=== PATIENT | male | born 1940 | race Caucasian/White ===

== ENCOUNTER 2017-09-13 09:41 | Outpatient (CLI) | payer MEDICARE ==
[2017-09-13] MEDS ORDERED: Iopamidol 370 76% 100 ML VIAL ONE (12:01)
--- NOTE | 2017-09-13 13:44 | CT ---
CT CHEST WITH CONTRAST CT ABDOMEN AND PELVIS WITH CONTRAST: Technique: Multiple axial tomograms were obtained through the chest, abdomen, and pelvis with IV enha ncement. Multiplanar reconstruction. History: Pancreatic neoplasm. Post chemo radiation. Comparison: CT chest from [facility] dated 11-14-16. CT abdomen dated 10-30-16. FINDINGS: CT CHEST: The lung alvarado are clear. No evidence of effusion, infiltrate, or mass. Tiny 3 mm nodule in the post erior left lung base is stable. Mild stranding in the left lung base is stable. Review of the mediastinum shows mild prominence of the ascending aorta measured at 4 cm. This is stab le. The left lobe of the thyroid is absent. Right lobe is mildly heterogenous and stable in appearanc e. No evidence of axillary adenopathy. The thoracic spine show mild degenerative change but appear st able in appearance. IMPRESSION: No evidence of acute chest process or metastatic lesion. There are stable chest findings as described above. CT ABDOMEN AND PELVIS: Comparison is made from the CT abdomen and pelvis from [facility] dated 10-30-16. There has been resection of the head of the pancreas since the prior study. There is evidence of a ch oledochoduodenostomy. The body and tail of the pancreas appears unremarkable. No evidence of recurren t mass. There is no diffuse low attenuation of the liver consistent with secondary hepatic steatosis. There i s heterogeneous opacity in the left lobe of the liver which is suggestive of areas of fatty sparring. There is no evidence of biliary duct dilatation. The spleen is unremarkable. Adrenal glands and kidneys unremarkable. Small bowel loops appear normal. Colon is unremarkable. Ther e is diverticulosis of the sigmoid colon. Prostate upper normal size. Urinary bladder unremarkable. Aorta is normal caliber with atherosclerotic changes seen. No adenopathy identified. Osseous structures are unremarkable with degenerative spine changes and degenerative hip changes. IMPRESSION: 1. Post-operative changes of partial pancreatectomy and choledochoduodenostomy. 2. Diffuse hepatic steatosis now present. There are areas of fatty sparring in the left lobe of the l iver. 3. No acute intraabdominal process or adenopathy identified. POS: [facility]
== END 2017-09-13 09:42 | disposition home or self-care (01) ==
LOC: CT 09:41
PROVIDERS: ATTEND Internal Medicine Hematology & Oncology
DX: C25.0 Malignant neoplasm of head of pancreas (principal); D75.1 Secondary polycythemia
CPT/HCPCS: 71260; 74177

== ENCOUNTER 2017-12-01 09:12 | Outpatient (CLI) | payer MEDICARE ==
--- NOTE | 2017-12-01 11:04 | CT ---
CT CHEST WITH IV CONTRAST CT ABDOMEN AND PELVIS WITH IV CONTRAST: Date: 12-01-17 History: Pancreatic cancer. Patient has had history of chemotherapy and radiation. This is a follow u p evaluation. Patient also has post-surgical history of Whipple procedure. Comparison: 09-13-17 FINDINGS: CT THORAX: A right internal jugular vein Mediport catheter remains in place. There is persistent ectasia of the ascending thoracic aorta measuring 4.4 cm in diameter. Vascular ca lcifications are seen in the coronary arteries as well as involving the thoracic aorta. There is no axillary, hilar, or mediastinal lymphadenopathy seen. Left lobe of the thyroid gland is either very small in size or absent. There is dependent atelectasis posteriorly, but there is no discrete pulmonary nodule, mass or pleura l effusion. Degenerative changes are again seen in the spine. CT ABDOMEN AND PELVIS: Post-surgical changes of the abdomen related to patient's history of Whipple procedure are again pres ent. Again noted is diffuse fatty infiltration of the liver with stable but mildly improved heterogeneity in the region of the medial aspect of the right and left hepatic lobes. These areas of slightly great er increased density and heterogeneity may be related to areas of fatty sparring. The loop of ileum adjacent to the liver demonstrates mild wall thickening, but this is unchanged from the prior exam. Minimal pneumobilia is present. The remaining body and tail of the pancreas are stable in size and although mildly atrophied, appear grossly normal in appearance. The spleen, bilateral adrenal glands, kidneys, and urinary bladder demonstrate a normal CT appearance . There is colonic diverticulosis. Suggested mild wall thickening involving a portion of the transverse colon. This was similar to the prior exam and could potentially be related to incomplete distention. The loops of small bowel are normal in caliber. There are several loops of bowel closely adjacent to the anterior abdominal wall and there is suggesting of a small umbilical hernia loop of bowel extend ing into this region. There is no bowel obstruction present. Vascular calcifications and atherosclerotic plaque are seen in the abdominal aorta and iliac arteries . No enlarged lymph nodes are seen by CT size criteria. There is no free fluid or fluid collection seen in the abdomen or pelvis. Multilevel degenerative changes are seen in the lumbar spine. No lytic or sclerotic osseous lesions a re present. There are subchondral cystic changes involving the right femoral head/neck junction. IMPRESSION: 1. Post-operative changes related to patient's history of prior Whipple procedure. 2. Diffuse fatty infiltration of the liver with probable fatty sparring adjacent to the medial aspect s of the right and left hepatic lobes. There is minimal pneumobilia. 3. Ectasia of the ascending thoracic aorta. 4. No CT evidence of metastatic disease involving the chest, abdomen, or pelvis. 5. Colonic diverticulosis. There is suggested wall thickening involving the hepatic flexure and porti on of the transverse colon, similar to the prior exam. However, the colon throughout this region is i ncompletely distended which may account for this finding. While colitis cannot be entirely excluded, this is a stable finding. 6. Stable thickening involving a loop of ileum in the region of the alayna hepatis. POS: [facility]
== END 2017-12-01 09:13 | disposition home or self-care (01) ==
LOC: CT 09:12
PROVIDERS: ATTEND Internal Medicine Hematology & Oncology
DX: C25.0 Malignant neoplasm of head of pancreas (principal); K76.0 Fatty (change of) liver, not elsewhere classified; I77.810 Thoracic aortic ectasia; K57.30 Diverticulosis of large intestine without perforation or abscess without bleeding; Z98.890 Other specified postprocedural states
CPT/HCPCS: 71260; 74177

== ENCOUNTER 2018-01-02 13:49 | Outpatient (CLI) | payer MEDICARE ==
--- NOTE | 2018-01-02 17:04 | PET ---
PET CT: 01/02/18 HISTORY: 77-year-old male with pancreatic cancer. Last chemotherapy on 08/16/17. Exam is requested for restagi ng. Patient is also status post radiation therapy to the abdomen. Exam was requested to evaluate for rising CA19.9. TECHNIQUE: PET scan with CT attenuation correction was performed from the base of the brain to the proximal thig hs following the intravenous administration of 12.4 millicuries [id number] in the left an tecubital fossa. COMPARISON: None. CORRELATION: CT chest, abdomen and pelvis dated 12/01/17. FINDINGS: There is a focal area of abnormally intense FDG localization in the medial aspect of the right lobe o f the liver close to the hilum with an SUV of 6. No corresponding lesion is seen on the CT scan. No n odal hypermetabolism is seen in the neck, chest, axillae, abdomen or pelvis. No hypermetabolic pulmon paola nodules, adrenal or skeletal lesions are seen. There is physiologic activity in the GI and tracts and the visualized portions of the brain. The CT scan used for attenuation correction demonstrates no evidence for pleural effusions or ascites . IMPRESSION: Solitary liver metastasis. POS: [facility]
== END 2018-01-02 13:50 | disposition home or self-care (01) ==
LOC: PET 13:49
PROVIDERS: ATTEND Internal Medicine Hematology & Oncology
DX: C25.9 Malignant neoplasm of pancreas, unspecified (principal); C22.7 Other specified carcinomas of liver
CPT/HCPCS: 78815; A9552

== ENCOUNTER 2018-01-25 09:49 | Outpatient (CLI) | payer MEDICARE ==
--- NOTE | 2018-01-25 13:01 | ULT ---
ABDOMINAL SONOGRAM: HISTORY: Pancreatic cancer with liver mets. FINDINGS: The gallbladder is surgically absent. The common duct is 0.5 cm. The liver is heterogeneous and hyp erechoic. Centrally within the anterior segment right liver lobe, a lobular hypoechoic mass is 3.0 x 2.8 cm greatest diameter and is in the region of hypermetabolic activity on recent PET scan. No free fluid. The spleen, kidneys, and visualized portions of the abdominal aorta, IVC, and pancrea s have a normal appearance. IMPRESSION: 1. Right liver lobe mass, 3.0 cm, correlating with hypermetabolic mass seen on recent PET scan. The mass is not visible on CT imaging. 2. Hepatosteatosis. 3. Status post cholecystectomy. Findings were called to Dr. Corral at 1130 hours. CODE CR POS: [facility]
== END 2018-01-25 09:50 | disposition home or self-care (01) ==
LOC: ULT 09:49
PROVIDERS: ATTEND Internal Medicine Hematology & Oncology
DX: C25.0 Malignant neoplasm of head of pancreas (principal); D75.1 Secondary polycythemia; K83.8 Other specified diseases of biliary tract; R16.0 Hepatomegaly, not elsewhere classified; K76.0 Fatty (change of) liver, not elsewhere classified; Z90.49 Acquired absence of other specified parts of digestive tract
CPT/HCPCS: 76700

== ENCOUNTER 2018-02-06 12:38 | Inpatient (IN) | payer MEDICARE ==
[2018-02-06] MEDS ORDERED: traMADol HCl 50 MG TAB PO PRN (12:57)
[2018-02-06] MEDS ORDERED: Ondansetron ODT 8 MG TAB PO PRN (12:57)
[2018-02-06 14:07] VITALS: BMI 24.0
[2018-02-06] MEDS: D5 0.9% NS w/ 20 mEq KCl 1,000 ML IV SCH ×2 (14:18→23:39)
[2018-02-06] MEDS ORDERED: HYDROcodone/Acetaminophen 10/325 mg Tablet PO PRN (15:17)
[2018-02-06] MEDS ORDERED: Acetaminophen 325 MG TAB PO PRN (15:17)
[2018-02-06] MEDS ORDERED: hydrALAZINE 20 MG/ML VIAL SLOW IVP PRN (15:17)
[2018-02-06] MEDS ORDERED: diphenhydrAMINE 25 MG CAP PO PRN (15:17)
[2018-02-06] MEDS ORDERED: Milk Of Magnesia 30 ML UDCUP PO PRN (15:17)
[2018-02-06] MEDS ORDERED: Multivit, Adult Inj 10 ML VIAL IV SCH (15:22)
[2018-02-06] MEDS: Ondansetron ODT 4 MG TAB PO PRN (16:24)
[2018-02-06] MEDS: Aluminum & Magnesium Hydroxide 60 ML, Lidocaine 2% Viscous Solution 30 ML, diphenhydrAM... SSW PRN ×2 (18:34→22:00)
--- NOTE | 2018-02-06 20:36 | CT ---
CT BRAIN WITHOUT CONTRAST: 02/06/18 HISTORY: Fall. Low platelets. COMPARISON: None. FINDINGS: There is a moderate sized right convexity subdural hematoma. There is minimal mass effect. The hemato ma measures up to 1 cm. There is evidence of recent and hyperacute blood. Calvarium is intact. IMPRESSION: Acute right subdural hematoma measuring up to 1 cm in size without significant right to left midline shift. Code IVIS Serrano, nurse, notified of findings at 8:18 p.m. POS: [facility]
[2018-02-06 20:53] LABS: Platelet Count 29 thou/uL (130-400); White Blood Cell (WBC) Count 0.4 thou/uL (4.8-10.8)
[2018-02-06] MEDS: Polyethylene Glycol 3350 17 GM Packet PO SCH (21:00)
[2018-02-06 21:03] LABS: Hemoglobin 9.6 g/dL (14.0-18.0); Mean Corpuscular HGB CONC 33.7 g/dL (32.0-36.0); Mean Corpuscular Hemoglobin 31.7 pg (27.0-31.0); Mean Corpuscular Volume 94.3 fl (80.0-94.0); Mean Platelet Volume 11.2 fL (7.4-10.4); PLT Morphology Comment Appears Decreased; RBC Distribution Width 13.8 % (11.5-14.5); Red Blood Cell (RBC) Count 3.03 mill/uL (4.70-6.10)
--- NOTE | 2018-02-06 21:12 | PDOC.EVN ---
Event Note - Event Note Event Note: Patient had an unwitnessed fall in the room. Admitted for platelet transfusion with 7000 due to chemo for pancreatic cancer, neutropenic as well. No symptoms after fall, but ordered a CT. Came back with subdural hematoma 1cm. Examined patient and neurologically intact. Spoke with Macarena with Neurosurg. She just went and saw. Recommended ICU for q1 hour neuro monitor. Transfuse up to 50,[address] in AM.
[2018-02-06] MEDS: Famotidine/PF 20 mg/2ml Vial SLOW IVP SCH (21:57)
[2018-02-06] MEDS: Docusate 100 MG CAP PO SCH (22:01)
[2018-02-06] MEDS: Multivitamins, Adult 10 ML in Sodium Chloride 0.9% 500 ML IV SCH (22:02)
--- NOTE | 2018-02-06 22:03 | HP ---
PRIMARY CARE PHYSICIAN: Ronan Jain M.D. ONCOLOGIST: Dr. Andre Corral. REASON FOR ADMISSION: Feeling generally weak and low blood counts. HISTORY OF PRESENT ILLNESS: Mr. Power is a pleasant 77-year-old gentleman who has a history of met astatic pancreatic cancer. He also has a history of hypertension and a previous cerebrovascular acci dent. He was doing fairly well until recently. The patient has had a Whipple procedure over a year ago and has undergone 6 months of chemotherapy and then he was found to have a recurrence of the [facility] er in the liver with a single metastatic lesion. He was seen by his oncologist who recommended him t o see a liver specialist, Dr. Dowling who did not feel that the lesion was resectable and recommend th at he undergo chemotherapy. He has been undergoing Bexxar and Gemzar and since then he has been feel ing weak in the last 4 days. He says that he has been having some low-grade nausea. He has always h ad some lower abdominal pain off and on, which he rates at about a 3/5. However, his appetite is dec reased. He has only been eating pudding and jello and occasionally eat a half of a grilled cheese [facility]. He went in to see his oncologist today and was found to be pancytopenic and due to his gener alized weakness along with the pancytopenia, he is being admitted to the oncology [place] for transfusio n as well as IV fluid resuscitation. He has admitted to some fever off and on in the last 4 days, bu t none yesterday. He does have a sore throat, but no other symptoms. REVIEW OF SYSTEMS: Constitutional: He has had some fever off and on in the last few days. No chill s, no night sweats. He has had a poor appetite. HEENT: He denies any headache, no dizziness, no vi sual changes. He has had sore throat. No rhinorrhea, no neck pain, no adenopathy. No sinus drainag e or rhinorrhea. Pulmonary: No hemoptysis, no cough, no wheezing. Cardiovascular: He denies any c hest pain, no shortness of breath, no PND, no orthopnea. Gastrointestinal: He has had lower abdomin al pain off and on, which he rates at a 3/5, some low-grade nausea, but no vomiting, no hematemesis, no melena. Genitourinary: No urinary frequency, hematuria, no hesitancy. Neurologic: No focal wea kness, numbness, no seizures. Psychiatric: No symptoms of anxiety or depression. Skin and Integume nt: He denies any bruising, but has had some gum bleeding with brushing his teeth. No epistaxis. PAST MEDICAL HISTORY: Significant for adenocarcinoma of the pancreas; hypertension; diverticulitis; polycythemia, which was secondary; and cerebrovascular accident. PAST SURGICAL HISTORY: He had a Whipple procedure in 2017, cholecystectomy, cervical disk arthroplas ty, appendectomy, tonsillectomy, and sinus endoscopy. ALLERGIES: SULFA and PENICILLIN. SOCIAL HISTORY: He is . He is a nonsmoker, nondrinker. He wishes to be a DNR and this is pe r the patient. FAMILY HISTORY: Significant for ovarian cancer in his mother, lung cancer in a sister. Father had h eart failure. MEDICATIONS: He says he is on a blood pressure medicine and aspirin. PHYSICAL EXAMINATION: GENERAL: He is alert and oriented. He appears to be in no acute distress. HEENT: Pupils are equal, round, and reactive. Extraocular muscles are intact. His sclerae are anic teric. Throat: No erythema, no exudates. NECK: No adenopathy, no bruits. LUNGS: Clear to auscultation. There is no wheezing, no rales. CARDIOVASCULAR: He has a normal S1, S2. I did not appreciate an S3 or S4. No murmurs, clicks or ru bs. ABDOMEN: Soft, nontender, nondistended. Positive for bowel sounds. There is no organomegaly. EXTREMITIES: There is no clubbing, cyanosis, no edema. NEUROLOGIC: Neurologically, the exam is grossly nonfocal. LABORATORY DATA: He is a direct admission, so there are no recent labs in the system; however, from the oncology clinic, the white blood cell count was 0.7, hemoglobin 8.9 and platelet count was 9000. ASSESSMENT AND PLAN: 1. This is a pleasant 77-year-old gentleman who has pancytopenia likely as a result of chemotherapy. He will be admitted to the oncology floor. The plan is for the transfusion of one donor of single donor platelets. His hemoglobin is 8.9 and therefore currently does not require any transfusion of h emoglobin. He reports he has had some fever off and on. We will monitor him carefully for this. Sh ould he develop a fever, then he will need to be cultured and started empirically on antibiotics give n his degree of neutropenia. He will be placed on neutropenic precautions. Deep venous thrombosis p rophylaxis will be avoided due to the low platelet count, sequential compression devices as well give n the low platelet count, we do not want to cause any bruising. He will be placed on a proton pump i nhibitor for gastrointestinal prophylaxis and his oncologist will be consulted. 2. For hypertension, we will restart his usual antihypertensive medications as well as p.r.n. medica tions as needed. Further recommendations will depend on how he does overnight.
[2018-02-07 05:06] VITALS: BP 170/88
[2018-02-07] MEDS: Ondansetron ODT 4 MG TAB PO PRN (05:30)
[2018-02-07 05:34] LABS: Hemoglobin 8.4 g/dL (14.0-18.0); Mean Corpuscular HGB CONC 33.5 g/dL (32.0-36.0); Mean Corpuscular Hemoglobin 31.1 pg (27.0-31.0); Mean Platelet Volume 8.7 fL (7.4-10.4); Platelet Count 45 thou/uL (130-400); RBC Distribution Width 13.7 % (11.5-14.5); Red Blood Cell (RBC) Count 2.71 mill/uL (4.70-6.10); White Blood Cell (WBC) Count 0.3 thou/uL (4.8-10.8)
[2018-02-07 05:39] LABS: Anion Gap 15 mmol/L (10-20); BUN (Urea Nitrogen) 26 mg/dL (8.4-25.7); Calc. Creatinine Clearance 102 mL/min (70-130); Calcium 7.5 mg/dL (7.8-10.44); Carbon Dioxide 21 mmol/L (23-31); Chloride 107 mmol/L (98-107); Estimated GFR-MDRD Greater than 90; Glucose 143 mg/dL (83-110); Potassium 3.5 mmol/L (3.5-5.1); Sodium 139 mmol/L (136-145)
--- NOTE | 2018-02-07 08:07 | PRG ---
DATE OF SERVICE: 02/07/2018 The patient was seen and examined. I agree with Macarena Caicedo's note of 02/06/2018. HISTORY OF PRESENT ILLNESS: The patient is a 77-year-old man with metastatic pancreatic cancer, curr ently undergoing treatment. He was admitted for pancytopenia, in particular thrombocytopenia. He valdes d a fall while in house. He is currently neurologically intact, although he complains of headache an d is slightly sleepy. He is interactive and moves all 4 without focal deficit. A CT scan obtained after his fall shows a small acute right subdural hematoma. This is stable on his follow up CT scan this morning. IMPRESSION AND PLAN: The patient has a small acute subdural hematoma related to his thrombocytopenia with a recent fall. No plans for any neurosurgical intervention and he is stable clinically and rad iographically. I will arrange a 4-week follow up CT scan and agree with the recommendation to strive for a platelet count of 50,000 or greater, if possible. Please call with any neurologic changes.
--- NOTE | 2018-02-07 08:52 | CON ---
DATE OF CONSULTATION: 02/06/2018 ATTENDING PHYSICIAN: Dr. Ruperto Delong. HISTORY OF PRESENT ILLNESS: This is a 77-year-old male with a past medical history of panc reatic cancer, status post Whipple procedure in September, who was undergoing chemo with Dr. Jace ortega, who was recently found to have a low platelet count of 7000 and followup and direct admitted f or platelet transfusion. During his admission, the patient got up to go to the bathroom and suffered a mechanical fall, hitting his head. CT of the head was done, which was notable for an acute right subdural hematoma, approximately 1 cm without significant midline shift. He was recently transfused 1 unit of platelets and his repeat platelet count is 29,000. I am seeing the patient at the bedside. He is awake, alert, in no acute distress. He has normal cranial nerve exam. No focal neurologic d eficits are appreciated. PAST MEDICAL HISTORY: Hypertension, pancreatic cancer. PAST SURGICAL HISTORY: Tonsillectomy, cholecystectomy, appendectomy, Whipple procedure. SOCIAL HISTORY: The patient does not smoke, drink or use any drugs. FAMILY HISTORY: Noncontributory. ALLERGIES: The patient is allergic to PENICILLIN and SULFA. PHYSICAL EXAMINATION: VITAL SIGNS: Heart rate is 112, respirations are 20, he is 95% on room air, blood pressure is 181/82 . CONSTITUTIONAL: Awake, alert, no acute distress. GCS is 15. HEAD: Normocephalic, atraumatic. EYES: PERRLA. Extraocular movements intact. ENT: Oral mucosa is pink, intact and moist. The patient has normal voice. NECK: Nontender to palpation. Free active range of motion. No meningismus or nuchal rigidity. CARDIOVASCULAR: Regular rate and rhythm. LUNGS: The patient is breathing comfortably with symmetric chest expansion. MUSCULOSKELETAL: Free active range of motion of all extremities. No obvious deformities. NEUROLOGIC: He is alert and oriented x4. Normal cranial nerve exam. No focal neurologic deficits a re appreciated. ASSESSMENT AND PLAN: The patient has acute right subdural hematoma following mechanical fall. His s ituation is complicated by thrombocytopenia. He was admitted with a platelet count of 7000, but repe at is 29,000 after transfusion of 1 unit of platelets. I have recommended transfused to platelet cou nt 50,000. The patient will be moved to the ICU for q.1 neuro checks and close monitoring. His syst olic blood pressure goal should be less than 140. I have discussed this plan with Dr. Delong, who is in agreement. We will get a.m. head CT for repeat evaluation.
--- NOTE | 2018-02-07 09:02 | CON ---
DATE OF CONSULTATION: 02/07/2018 This is a 77-year-old gentleman who is in the ICU status post fall, status post an acute right-sided subdural hematoma. The patient apparently was here for transfusion of platelets overnight in the hospital when he appare ntly fell and sustained an acute right subdural hematoma. He was transferred to the ICU for ongoing observation. His history is extensively outlined in his medical records. From the Cancer Clinic here locally, the patient has an adenocarcinoma of the head of the pancreas, he is status post Whipple procedure 11/17 associated with some positive lymph nodes and extracapsular invasion. He has been receiving chemotherapy by his oncologist and was pancytopenic and arrived for a blood tra nsfusion. To note, his white count was 0.4, H&H was 9 and 28. His platelet count was 29,000. It is 45,000 this morning. His kidney functions are normal. Glucose is slightly elevated at 143 and his AST is 188. He had a CT done of his brain, which showed the above-mentioned acute right subdural. He was seen in consultation by Neurosurgery who is at this time planning conservative treatment. PAST MEDICAL HISTORY: Hypertension, previous CVA, previous polycythemia. PAST SURGICAL HISTORY: 1. Whipple 2017 2. Cholecystectomy. 3. Circ. 4. Appendix. 5. Tonsils. 6. Sinus surgery. ALLERGIES: SULFA, PENICILLIN. MEDICATIONS FROM HOME: MiraLax, Zofran, metoprolol 50 once a day, aspirin, tramadol p.r.n. SOCIAL HISTORY: No tobacco abuse, alcohol socially. REVIEW OF SYSTEMS: Otherwise 10-point negative. PHYSICAL EXAMINATION: VITAL SIGNS: Pulse is 96, blood pressure 129/91, sats 90%, respirations 18. CHEST: Chest reveals no wheezing or crackles. CARDIAC: Normal S1, S2, no gallops. ABDOMEN: Soft. No masses. IMPRESSION: 1. Right subdural acute, small. 2. Pancytopenia. White count is 0.3, H&H is 8.4 and 25, platelet count 45 this morning. Electrolytes are normal. IMPRESSION: 1. Adenocarcinoma. 2. Hypertension. PLAN: Pulmonary will follow while in the ICU. At this stage, nothing additional to offer. Supportive care. This is a consultation note, 70 minutes, 50% spent in direct patient care.
[2018-02-07] MEDS: Docusate 100 MG CAP PO SCH ×2 (09:11→20:06)
[2018-02-07] MEDS: D5 0.9% NS w/ 20 mEq KCl 1,000 ML IV SCH ×2 (09:29→20:26)
[2018-02-07] MEDS: Famotidine/PF 20 mg/2ml Vial SLOW IVP SCH ×2 (09:39→20:55)
--- NOTE | 2018-02-07 10:32 | CT ---
PRELIMINARY REPORT/[facility]/EMERGENTY AFTER-HOURS PROCEDURE Addendum created by Andrea Kessler MD on 02/07/2018 4:56 AM Central Time ([place] & [place]) THIS REPORT C ONTAINS FINDINGS THAT MAY BE CRITICAL TO PATIENT CARE. The findings were verbally communicated via te lephone conference with Brown Caicedo at 4:55 AM CDT on 02/07/2018. The findings were acknowledged and understood. Initial Report created on 02/07/2018 4:51 AM Central Time ([place] & [place]) CT Head Without Intravenous Contrast CLINICAL HISTORY: 77 years old, male; cerebral aneurysm: Pt fell, low platelet count. F/u bleed TECHNIQUE: Axial computed tomography images of the head/brain without intravenous contrast. COMPARISON: No relevant prior studies available. FINDINGS: Brain: Gxmmh-la-lrlctty right fjypcmah-rjvtosjj-jlfeppbir subdural hematoma measuring 9 mm in greates t transverse thickness. No midline shift. Periventricular white matter areas of decreased density whi ch are likely secondary to chronic ischemia from microvascular change. Diffuse cerebral atrophy. Ventricles: Ventricular prominence in this patient with diffuse cerebral atrophy. Bones/joints: Unremarkable. No acute fracture. Soft tissues: Unremarkable. Sinuses: No significant disease of the paranasal sinuses. Mastoid air cells: No mastoiditis. IMPRESSION: 1. Vsabi-gg-rkygfod right vhpoxctj-cqscjbax-dnpqbxsum subdural hematoma measuring 9 mm in greatest tr ansverse thickness. No midline shift. 2. Age-related periventricular white matter changes. Diffuse cerebral atrophy. Thank you for allowing us to participate in the care of your patient. Dictated and Authenticated by: Andrea Kessler MD 02/07/2018 4:51 AM Central Time ([place] & [place]) FINAL REPORT CT [place] WITHOUT CONTRAST: I agree with the preliminary report given by Dr. Andrea Kessler of [facility]. No significant interval change is seen since the previous exam of 02/06/18 (8:05 p.m.). POS: [facility]
[2018-02-07] MEDS ORDERED: Morphine 4 MG/ML VIAL ONE (16:12)
[2018-02-07] MEDS: Multivitamins, Adult 10 ML in Sodium Chloride 0.9% 500 ML IV SCH (16:57)
--- NOTE | 2018-02-07 18:28 | PDOC.PN ---
- Subjective Encounter Start Date: 02/07/18 Encounter Start Time: 09:40 Pt seen for followup re: pancytopenia. Denies chest pain, shortness of breath, fevers or chills. No nausea or vomiting. - Objective Resuscitation Status: Resuscitation Status DNI:No Intubation MAR Reviewed: Yes Vital Signs & Weight: Vital Signs (12 hours) Temp Pulse Resp Pulse Ox 02/07/18 18:00 98.0 F 02/07/18 14:00 98.0 F 02/07/18 10:00 98.2 F 02/07/18 08:00 98.0 F 90 18 98 02/07/18 07:00 98.0 F Weight Admit Weight 172 lb Weight 172 lb Most Recent Monitor Data Heart Rate from ECG 108 NIBP 120/43 NIBP BP-Mean 81 Respiration from ECG 31 SpO2 96 I&O: 02/06/18 02/07/18 02/08/18 06:59 06:59 06:59 Intake Total 1211 1470 Output Total 750 1 Balance 461 1469 Result Diagrams: 02/07/18 05:18 02/07/18 05:18 EKG Reviewed by me: Yes (Tele: NSR) Phys Exam - Physical Examination Constitutional: NAD HEENT: moist MMs, sclera anicteric, oral pharynx no lesions, 2+ tonsils Conjunctival pallor Neck: no nodes, no JVD, supple, full ROM Respiratory: no wheezing, no rales, no rhonchi, clear to auscultation bilateral Cardiovascular: RRR, no rub S1, S2 Gastrointestinal: soft, non-tender, no distention, positive bowel sounds Neurological: non-focal, moves all 4 limbs Psychiatric: normal affect, A&O x 3 Dx/Plan (1) Pancytopenia Code(s): D61.818 - OTHER PANCYTOPENIA Status: Acute Comment: Due to chemo. Keep platelets > 50 K. Transfuse 1 unit platelets today. Continue neutropenic precautions. (2) Intracranial bleed Code(s): I62.9 - NONTRAUMATIC INTRACRANIAL HEMORRHAGE, UNSPECIFIED Status: Acute Comment: Subdural hematoma. Seen by neurosurgery, no plan for surgery. Keep plts > 50k. (3) HTN (hypertension) Code(s): I10 - ESSENTIAL (PRIMARY) HYPERTENSION Status: Chronic Comment: Controlled (4) Pancreatic adenocarcinoma Code(s): C25.9 - MALIGNANT NEOPLASM OF PANCREAS, UNSPECIFIED Status: Chronic Comment: receiving chemotherapy, will consult oncology - Plan * . Review of Systems - Review of Systems Constitutional: negative: fever, chills, sweats, weakness, malaise Respiratory: negative: Cough, Shortness of Breath, SOB with Excertion, Pleuritic Pain, Wheezing Cardiovascular: negative: chest pain, palpitations, orthopnea, paroxysmal nocturnal dyspnea, edema, light headedness Gastrointestinal: negative: Nausea, Vomiting, Abdominal Pain, Diarrhea, Constipation, Melena, Hematochezia Genitourinary: negative: Dysuria, Frequency, Incontinence, Hematuria, Retention Neurological: negative: Weakness, Numbness, Incoordination, Change in Speech, Confusion, Seizures - Medications/Allergies Allergies/Adverse Reactions: Allergies Allergy/AdvReac Type Severity Reaction Status Date / Time Penicillins Allergy Intermediate Rash Verified 12/23/16 13:41 Sulfa (Sulfonamide Allergy Intermediate Rash Verified 12/23/16 13:41 Antibiotics) Medications: Current Medications Acetaminophen (Tylenol) 650 mg PO Q4H PRN PRN Reason: Headache/Fever or Pain Hydrocodone Bitart/Acetaminophen ([place] 10/325) 1 tab PO Q4H PRN PRN Reason: Moderate Pain (4-6) Al Hydroxide/Mg Hydroxide 60 ml/ Lidocaine HCl 30 ml/Diphenhydramine HCl 75 mg 0 ml SSW PRN PRN PRN Reason: Mouth Irritation Last Admin: 02/06/18 18:34 Dose: 10 ml Diphenhydramine HCl (Benadryl) 25 mg PO Q4H PRN PRN Reason: Itching Docusate Sodium (Colace) 100 mg PO BID [facility] Last Admin: 02/07/18 09:11 Dose: Not Given Famotidine (Pepcid) 20 mg SLOW IVP Q12HR [facility] Last Admin: 02/07/18 09:39 Dose: Not Given Hydralazine HCl (Apresoline) 10 mg SLOW IVP Q4H PRN PRN Reason: Systolic BP > 180 Last Admin: 02/07/18 05:05 Dose: 10 mg Potassium Chloride/Dextrose/Sod Cl (D5 0.9% Ns W/ 20 Meq Kcl) 1,000 mls @ 100 mls/hr IV .Q10H [facility] Last Admin: 02/07/18 09:29 Dose: 1,000 mls Multivitamins 10 ml/ Sodium (Chloride) 510 mls @ 255 mls/hr IV Q24HR [facility]ODI Stop: 02/08/18 17:59 Last Admin: 02/07/18 16:57 Dose: 510 mls Nicardipine HCl 25 mg/ Sodium (Chloride) 260 mls @ 0 mls/hr IVPB INF JODI; Titrate PRN Reason: Protocol Last Admin: 02/07/18 05:32 Dose: 260 mls Magnesium Hydroxide (Milk Of Magnesium) 30 ml PO DAILYPRN PRN PRN Reason: Constipation Metoprolol Succinate (Toprol Xl) 50 mg PO QPM [facility] Last Admin: 02/06/18 21:55 Dose: 50 mg Morphine Sulfate (Morphine) 2 mg SLOW IVP Q4H PRN PRN Reason: Mild-Moderate Pain (1-5) Ondansetron HCl (Zofran Odt) 8 mg PO Q8H PRN PRN Reason: Nausea/Vomiting Ondansetron HCl (Zofran Odt) 4 mg PO Q6H PRN PRN Reason: Nausea/Vomiting Last Admin: 02/07/18 05:30 Dose: 4 mg Pantoprazole Sodium (Protonix) 40 mg PO DAILY [facility] Last Admin: 02/07/18 09:11 Dose: Not Given Polyethylene Glycol (Miralax) 17 gm PO QPM [facility] Last Admin: 02/06/18 21:00 Dose: Not Given Sodium Chloride (Flush - Normal Saline) 10 ml IVF Q12HR [facility] Last Admin: 02/07/18 09:29 Dose: 10 ml Sodium Chloride (Flush - Normal Saline) 10 ml IVF PRN PRN PRN Reason: Saline Flush Last Admin: 02/06/18 14:19 Dose: 10 ml Tramadol HCl (Ultram) 50 mg PO Q8H PRN PRN Reason: Pain
[2018-02-07] MEDS: Polyethylene Glycol 3350 17 GM Packet PO SCH (20:07)
[2018-02-07] MEDS: Morphine 4 MG/ML VIAL SLOW IVP PRN (22:05)
--- NOTE | 2018-02-07 22:44 | CON ---
DATE OF CONSULTATION: 02/07/2018 REASON FOR CONSULTATION: Pancreatic cancer. HISTORY OF PRESENT ILLNESS: Mr. Power is a 77-year-old male with a history of pancreatic cancer who underwent chemoradiation completed in 08/2017. He showed no evidence of disease. On 2017, his PET scan showed a solitary liver metastasis. He saw Dr. Dowling and was felt that this area was not resectable. The patient had a declining performance status and overall decline in health; h owever, he was willing to try chemotherapy, so he received his first cycle of Abraxane, Gemzar at a r educed dose on 02/01/2018. He did poorly and required IV fluids in the clinic. On Monday, he prese nted for fluids and was neutropenic. His platelet count was 9000. Decision was made to admit him fo r further treatment and platelet transfusion. Unfortunately last night, he attempted to climb out of bed and fell, he had a subdural hematoma. He was evaluated by Neurosurgery and placed in the ICU fo r close monitoring. His platelet count this morning was 45,000. A CT scan today confirmed a stable hematoma. Unfortunately, the patient has been mildly confused and restless. His white count has con tinued to drop. Blood pressure has continued to increase. PAST MEDICAL HISTORY: 1. Stage IV adenocarcinoma of the pancreas. 2. Hypertension. 3. Diverticulitis. 4. Polycythemia. 5. History of CVA. PAST SURGICAL HISTORY: 1. Whipple in 2017. 2. Cholecystectomy. 3. Cervical disk arthroscopy. 4. Appendectomy. 5. Tonsillectomy. 6. Sinus endoscopy. ALLERGIES: SULFA and PENICILLIN. HOME MEDICATIONS: 1. Aspirin 81 mg daily. 2. Hydrocodone p.r.n. 3. Metoprolol tartrate 50 mg daily. 4. Prilosec daily. FAMILY HISTORY: Noncontributory. SOCIAL HISTORY: , lives with his spouse. No alcohol, tobacco, or illicit drug use. REVIEW OF SYSTEMS: Unable to obtain at this point secondary to confusion. PHYSICAL EXAMINATION: VITAL SIGNS: Temperature is 98.0, pulse is 120, blood pressure is 127/66. His respirations are 20, he is 97% on room air. GENERAL: Mildly confused gentleman in no acute distress. HEENT: Normocephalic, atraumatic. Pupils equal and reactive to light. NECK: Supple. CARDIOVASCULAR: Regular rate and rhythm, is tachycardic. LUNGS: Clear. ABDOMEN: Soft, nontender, bowel sounds are positive. EXTREMITIES: No clubbing, cyanosis or edema. SKIN: No rash. HEMATOLOGIC: No petechia or purpura. NEUROLOGIC: Nonfocal. PSYCHIATRIC: The patient is mildly confused, but follows commands. PERTINENT LABORATORY DATA AND X-RAYS: WBCs are 300, hemoglobin 8.4, hematocrit 25.2, platelet count 45,000. Sodium is 139, potassium 3.5, chloride 107, CO2 is 21, BUN is 26, creatinine 0.65, calcium i s 7.5. Brain CT shows stable subdural hematoma. ASSESSMENT: 1. Pancreatic cancer, status post chemotherapy. 2. Pancytopenia secondary to #1. 3. Recent fall with subdural hematoma. 4. Confusion secondary to #3. DISCUSSION: The case has been discussed with Dr. Corral. Dr. Corral has discussed patient's progn osis with both his spouse and the daughter, they both agreed that he should be a DNI and is a deborah te for hospice given his extremely poor prognosis. We will consult hospice in the morning and provid e supportive care until he is able to go home. Thank you for the consult.
[2018-02-08] MEDS: Morphine 4 MG/ML VIAL SLOW IVP PRN ×3 (02:36→14:12)
[2018-02-08] MEDS: D5 0.9% NS w/ 20 mEq KCl 1,000 ML IV SCH ×2 (06:17→14:27)
[2018-02-08] MEDS ORDERED: Morphine 10 MG/ML VIAL SLOW IVP PRN (06:45)
[2018-02-08] MEDS: Docusate 100 MG CAP PO SCH (07:55)
[2018-02-08 08:27] LABS: Hemoglobin 7.7 g/dL (14.0-18.0); Mean Corpuscular HGB CONC 33.2 g/dL (32.0-36.0); Mean Corpuscular Volume 93.4 fl (80.0-94.0); Mean Platelet Volume 11.1 fL (7.4-10.4); Platelet Count 27 thou/uL (130-400); RBC Distribution Width 13.8 % (11.5-14.5); Red Blood Cell (RBC) Count 2.49 mill/uL (4.70-6.10); White Blood Cell (WBC) Count 0.2 thou/uL (4.8-10.8)
[2018-02-08 08:37] LABS: Anion Gap 16 mmol/L (10-20); BUN (Urea Nitrogen) 29 mg/dL (8.4-25.7); Calc. Creatinine Clearance 97 mL/min (70-130); Calcium 7.4 mg/dL (7.8-10.44); Carbon Dioxide 18 mmol/L (23-31); Chloride 114 mmol/L (98-107); Estimated GFR-MDRD Greater than 90; Glucose 95 mg/dL (83-110); Potassium 3.5 mmol/L (3.5-5.1); Sodium 144 mmol/L (136-145)
[2018-02-08 08:39] LABS: MDiff Complete? YES; Ovalocytes SLIGHT = 2-5 cells (100X) (0-1/hpf); PLT Morphology Comment Appears Decreased; Polychromasia SLIGHT = 2-3 cells (100X) (0-2/hpf)
[2018-02-08] MEDS: Famotidine/PF 20 mg/2ml Vial SLOW IVP SCH (09:14)
--- NOTE | 2018-02-08 12:38 | PRG ---
DATE OF SERVICE: 02/08/2018 SUBJECTIVE: Giovanny Power is awake, alert, responsive, less agitated, status post fall with subdural. OBJECTIVE: VITAL SIGNS: Blood pressure 135/65, pulse 81, respiration rate 18, sats are 99 , afebrile. CHEST: Chest reveals decreased breath sounds, no wheezing. CARDIAC: Normal S1, S2. No gallops or rubs. ABDOMEN: Soft, no masses. LABORATORY DATA: No lab was ordered. IMPRESSION: Status post fall with subdural hematoma, status post transfusion. PLAN: Continue PT and supportive care..He can_ transfer out of the ICU. MTDD
--- NOTE | 2018-02-08 15:27 | PDOC.PN ---
- Subjective Encounter Start Date: 02/08/18 Encounter Start Time: 15:26 Subjective: family at bedside.report no new changes - Objective Resuscitation Status: Resuscitation Status DNI:No Intubation MAR Reviewed: Yes Vital Signs & Weight: Vital Signs (12 hours) Temp Pulse Resp Pulse Ox 02/08/18 12:00 99.0 F 02/08/18 07:58 97.8 F 99 21 H 98 02/08/18 07:00 98.0 F 02/08/18 04:00 97.8 F Weight Admit Weight 172 lb Weight 172 lb Most Recent Monitor Data Heart Rate from ECG 124 NIBP 116/75 NIBP BP-Mean 97 Respiration from ECG 11 SpO2 95 I&O: 02/07/18 02/08/18 02/09/18 06:59 06:59 06:59 Intake Total 1211 2890 60 Output Total 750 1 170 Balance 461 2889 -110 Result Diagrams: 02/08/18 08:02 02/08/18 08:01 Additional Labs: Laboratory Tests 02/06/18 02/07/18 02/08/18 19:49 05:18 08:02 WBC 0.4 L* 0.3 L* 0.2 L* Hgb 9.6 L 8.4 L 7.7 L Plt Count 29 L* 45 L 27 L* Phys Exam - Physical Examination fidgety,jaundiced Respiratory: no wheezing Cardiovascular: RRR Gastrointestinal: soft, positive bowel sounds Musculoskeletal: no edema Neurological: moves all 4 limbs Dx/Plan (1) Intracranial bleed Code(s): I62.9 - NONTRAUMATIC INTRACRANIAL HEMORRHAGE, UNSPECIFIED Status: Acute Comment: Subdural hematoma. Seen by neurosurgery, no plan for surgery. Keep plts > 50k. (2) Pancytopenia Code(s): D61.818 - OTHER PANCYTOPENIA Status: Acute Comment: Due to chemo. Keep platelets > 50 K. Transfused . Continue neutropenic precautions. (3) HTN (hypertension) Code(s): I10 - ESSENTIAL (PRIMARY) HYPERTENSION Status: Chronic Comment: Controlled (4) Pancreatic adenocarcinoma Code(s): C25.9 - MALIGNANT NEOPLASM OF PANCREAS, UNSPECIFIED Status: Chronic Comment: receiving chemotherapy, will consult oncology - Plan DVT proph w/SCDs family requesting hospice-consulted. -: cont supportive care. * . Review of Systems - Review of Systems Other: unobtainable due to encephalopathy - Medications/Allergies Allergies/Adverse Reactions: Allergies Allergy/AdvReac Type Severity Reaction Status Date / Time Penicillins Allergy Intermediate Rash Verified 12/23/16 13:41 Sulfa (Sulfonamide Allergy Intermediate Rash Verified 12/23/16 13:41 Antibiotics) Medications: Current Medications Acetaminophen (Tylenol) 650 mg PO Q4H PRN PRN Reason: Headache/Fever or Pain Hydrocodone Bitart/Acetaminophen ([place] 10/325) 1 tab PO Q4H PRN PRN Reason: Moderate Pain (4-6) Al Hydroxide/Mg Hydroxide 60 ml/ Lidocaine HCl 30 ml/Diphenhydramine HCl 75 mg 0 ml SSW PRN PRN PRN Reason: Mouth Irritation Last Admin: 02/06/18 18:34 Dose: 10 ml Diphenhydramine HCl (Benadryl) 25 mg PO Q4H PRN PRN Reason: Itching Docusate Sodium (Colace) 100 mg PO BID [facility] Last Admin: 02/08/18 07:55 Dose: Not Given Hydralazine HCl (Apresoline) 10 mg SLOW IVP Q4H PRN PRN Reason: Systolic BP > 180 Last Admin: 02/07/18 05:05 Dose: 10 mg Potassium Chloride/Dextrose/Sod Cl (D5 0.9% Ns W/ 20 Meq Kcl) 1,000 mls @ 100 mls/hr IV .Q10H [facility] Last Admin: 02/08/18 14:27 Dose: 1,000 mls Multivitamins 10 ml/ Sodium (Chloride) 510 mls @ 255 mls/hr IV Q24HR [facility] Stop: 02/08/18 17:59 Last Admin: 02/07/18 16:57 Dose: 510 mls Nicardipine HCl 25 mg/ Sodium (Chloride) 260 mls @ 0 mls/hr IVPB INF JODI; Titrate PRN Reason: Protocol Last Admin: 02/07/18 20:25 Dose: 260 mls Magnesium Hydroxide (Milk Of Magnesium) 30 ml PO DAILYPRN PRN PRN Reason: Constipation Metoprolol Succinate (Toprol Xl) 50 mg PO QPM [facility] Last Admin: 02/07/18 20:04 Dose: 50 mg Morphine Sulfate (Morphine) 2 mg SLOW IVP Q4H PRN PRN Reason: Mild-Moderate Pain (1-5) Last Admin: 02/08/18 06:52 Dose: 2 mg Morphine Sulfate (Morphine) 4 mg SLOW IVP Q3H PRN PRN Reason: Moderate to Severe Pain (6-10) Last Admin: 02/08/18 14:12 Dose: 4 mg Ondansetron HCl (Zofran Odt) 8 mg PO Q8H PRN PRN Reason: Nausea/Vomiting Ondansetron HCl (Zofran Odt) 4 mg PO Q6H PRN PRN Reason: Nausea/Vomiting Last Admin: 02/07/18 05:30 Dose: 4 mg Pantoprazole Sodium (Protonix) 40 mg PO DAILY [facility] Last Admin: 02/08/18 09:04 Dose: 40 mg Polyethylene Glycol (Miralax) 17 gm PO QPM [facility] Last Admin: 02/07/18 20:07 Dose: Not Given Sodium Chloride (Flush - Normal Saline) 10 ml IVF Q12HR [facility] Last Admin: 02/08/18 09:04 Dose: 10 ml Sodium Chloride (Flush - Normal Saline) 10 ml IVF PRN PRN PRN Reason: Saline Flush Last Admin: 02/06/18 14:19 Dose: 10 ml Tramadol HCl (Ultram) 50 mg PO Q8H PRN PRN Reason: Pain
[2018-02-08] MEDS ORDERED: Lorazepam 2 MG/ML VIAL SLOW IVP PRN (16:44)
[2018-02-08] MEDS ORDERED: Aspirin 81 mg Enteric Coated Tablet ONE (16:46)
[2018-02-08] MEDS: Multivitamins, Adult 10 ML in Sodium Chloride 0.9% 500 ML IV SCH (16:48)
[2018-02-08] MEDS ORDERED: Digoxin 0.5 MG/2 ML AMP SLOW IVP SCH (17:00)
[2018-02-08 17:47] VITALS: TEMP 98.8
--- NOTE | 2018-02-08 19:39 | PDOC.EVN ---
Event Note - Event Note Event Note: RN called - Patient not accepted by inpatient hospice. Will hold dc
--- NOTE | 2018-02-09 18:30 | DIS ---
DATE OF ADMISSION: 02/06/2018 DATE OF DISCHARGE: 02/08/2018 CONDITION AT THE TIME OF DISCHARGE: Unstable. DISCHARGE DISPOSITION: Inpatient hospice. DISCHARGE DIAGNOSES: 1. Subdural hematoma. 2. Pancytopenia secondary to cancer chemotherapy. 3. History of hypertension. 4. Advanced pancreatic adenocarcinoma. 5. History of diverticulitis. 6. History of secondary polycythemia. 7. History of cerebrovascular accident. DISCHARGE MEDICATIONS: As per inpatient hospice team [facility]. CONSULTATIONS INHOUSE: 1. Neurosurgery, Dr. Delong. 2. Oncology, Ms. Ness Lechuga for Dr. Corral. 3. Critical care physicians. PROCEDURES DONE IN THE HOSPITAL: 1. CT scan of the brain upon presentation, which showed acute right subdural hematoma without signif icant shift on presentation. 2. 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 HISTORY OF PRESENT ILLNESS: Mr. Power is a 77-year-old male with known history of adenocarcinoma o f the pancreas who presented to the hospital with complaints of feeling generalized weakness and low blood counts. He was recently found to have metastatic disease to the liver despite 6 months of chem otherapy and a Whipple procedure and is followed up in outside hospital by oncologist who felt that t he lesion was resectable and he started chemotherapy for this liver lesion. Since starting the chemo therapy, he has been feeling weak for the last 4 days on presentation with low grade abdominal pain, nausea, and reduced appetite. Upon presentation, he was found to have pancytopenia with WBC count of 0.7, hemoglobin 8.9, platelet count of 9000. He was otherwise hemodynamically stable. He was admit paola to oncology floor for infusion and IV fluids. Please see admission history and physical for furt her details. HOSPITAL COURSE: Unfortunately, shortly after admission, the patient got up to go to the bathroom an d suffered a mechanical fall, hitting his head. A CT scan was done which was notable for acute right -sided subdural hematoma without any significant shift. Given the fact that he was thrombocytopenic and a new bleed: Neurosurgery and Oncology were consulted. He was transfused with 3 units of platel ets as well and daily platelet counts were observed. He was transitioned over to the [facility] for this acute hematoma and neurosurgery followed along. Oncology saw the patient and discussed a poor prognosis and decline in his condition despite the cancer chemotherapy for his new metastatic liver lesion. At this time, the family agrees that his long-term prognosis is extremely poor and the y change him to DNR and DNI status. Eventually they decided that the patient would benefit from hosp ice services and they were consulted. Hospice saw the patient and he was scheduled to be discharged home with hospice, but he was quite uns table. Prior to discharge with hypotension and tachycardia despite comfort care medications. Then, it was decided that he will be a better candidate for inpatient hospice. This was arranged and he wa s discharged from Internal Medicine Services with [facility] under the care [facility] under Dr. Parmar's service. He was seen and examined prior to discharge. Please see Hospitalist progress note from the date of d ischarge for further detail. Discharge plan was discussed with the family and they were appreciative of all the help provided and agreed with the above-mentioned plan. Total time spent in the discharge of this patient was 32 minutes.
== END 2018-02-08 21:02 | disposition hospice, inpatient (51) | DRG 809 ==
LOC: ONC 12:38 → CCU 22:53 → T4-B 02-08 19:27
PROVIDERS: ADMIT Family Medicine; ATTEND Family Medicine
PROC: 30233R1 Transfusion of Nonautologous Platelets into Peripheral Vein, Percutaneous Approach (ICD-10-PCS; principal; 2018-02-06)
DX: D61.810 Antineoplastic chemotherapy induced pancytopenia (principal); C78.7 Secondary malignant neoplasm of liver and intrahepatic bile duct; S06.5X0A Traumatic subdural hemorrhage without loss of consciousness, initial encounter; I10 Essential (primary) hypertension; T45.1X5A Adverse effect of antineoplastic and immunosuppressive drugs, initial encounter; Z86.73 Personal history of transient ischemic attack (TIA), and cerebral infarction without residual deficits; Z85.07 Personal history of malignant neoplasm of pancreas; Z88.0 Allergy status to penicillin; Z88.2 Allergy status to sulfonamides; W06.XXXA Fall from bed, initial encounter; Y92.230 Patient room in hospital as the place of occurrence of the external cause; Z79.82 Long term (current) use of aspirin; Z79.899 Other long term (current) drug therapy
CPT/HCPCS: 36415; 36430; 70450; 80048; 80053; 82248; 83615; 84100; 84550; 85025; 86850; 86900; 86901; A4216; J0360; J1160; J2060; J2270; J7050; P9035; Q0162; S0028

== ENCOUNTER 2018-02-08 21:16 | Inpatient (IN) | payer MEDICARE, OTHER ==
[2018-02-08] MEDS ORDERED: Hyoscyamine Sulfate SL 0.125 mg Tablet SL PRN (21:30)
[2018-02-08] MEDS ORDERED: Acetaminophen 650 MG Suppository PR PRN (21:30)
[2018-02-08] MEDS ORDERED: Lorazepam 2 MG/ML VIAL SLOW IVP PRN (21:31)
[2018-02-08] MEDS ORDERED: Morphine 4 MG/ML VIAL SLOW IVP PRN ×2 (21:32→21:33)
[2018-02-08] MEDS ORDERED: Ondansetron HCl/PF 4 MG/2 ML Vial IVP PRN ×2 (21:33→21:34)
[2018-02-09 00:36] VITALS: BP 90/60
[2018-02-09 00:37] VITALS: TEMP 99
--- NOTE | 2018-02-12 09:10 | DS ---
This was a 77-year-old gentleman admitted for advanced pancreatic cancer with a subdural hematoma. T he patient was not amenable to any chemotherapy and so hospice was initiated. The patient lauren fully on 02/09/2018 at 4:55 a.m. [facility] The family was notified . The patient had multiple comorbidities.
== END 2018-02-09 04:50 | disposition expired | DRG 435 ==
LOC: T4-B 21:16
PROVIDERS: ADMIT Internal Medicine Nephrology; ATTEND Internal Medicine Nephrology
DX: C25.9 Malignant neoplasm of pancreas, unspecified (principal); I62.00 Nontraumatic subdural hemorrhage, unspecified; D61.810 Antineoplastic chemotherapy induced pancytopenia; Z51.5 Encounter for palliative care; I10 Essential (primary) hypertension; Z86.73 Personal history of transient ischemic attack (TIA), and cerebral infarction without residual deficits; Z66 Do not resuscitate; Z88.0 Allergy status to penicillin; Z88.2 Allergy status to sulfonamides; Z79.82 Long term (current) use of aspirin
CPT/HCPCS: J2060; J2270